=== PATIENT | male | born 1970 | race Caucasian/White ===

== ENCOUNTER 2025-06-30 09:29 | Emergency (ER) | payer MEDICAID, OTHER ==
[~2025-06-30] VITALS: Ht 170.2 cm; Wt 105.0 kg
[~2025-06-30 09:29] MED LIST: TRAMADOL
[2025-06-30 09:38] VITALS: O2SAT 98
[2025-06-30] MEDS ORDERED: MELO-105 MT (11:28)
[2025-06-30 12:03] VITALS: BP 138/89; PULSE 57; RESP 18; TEMP 36.6; O2SAT 100
== END 2025-06-30 12:09 | disposition home or self-care (01) ==
LOC: ER 09:29
DX: S83.92XA Sprain of unspecified site of left knee, initial encounter (principal); W11.XXXA Fall on and from ladder, initial encounter; Y93.39 Activity, other involving climbing, rappelling and jumping off; Y92.89 Other specified places as the place of occurrence of the external cause; Y99.8 Other external cause status
CPT/HCPCS: 73560; 99283